=== PATIENT | male | born 1990 | race Caucasian/White ===

== ENCOUNTER 2016-10-26 17:14 | Emergency (ER) | payer BC, OTHER ==
[~2016-10-26] VITALS: Ht 188 cm; Wt 92.5 kg
[2016-10-26 17:23] VITALS: BP 134/86
== END 2016-10-26 19:30 | disposition home or self-care (01) ==
LOC: ED 17:14
DX: S86.812A Strain of other muscle(s) and tendon(s) at lower leg level, left leg, initial encounter (principal); R03.0 Elevated blood-pressure reading, without diagnosis of hypertension; Z88.5 Allergy status to narcotic agent; W51.XXXA Accidental striking against or bumped into by another person, initial encounter; Y93.66 Activity, soccer; Y92.89 Other specified places as the place of occurrence of the external cause; Y99.8 Other external cause status